=== PATIENT | female | born 1970 | race Caucasian/White ===

== ENCOUNTER 2016-07-24 04:13 | Inpatient (IN) | payer BC, OTHER ==
[2016-07-24] VITALS (23 sets, daily range): BP systolic 57–111; BP diastolic 36–74
[~2016-07-24] VITALS: Ht 157.5 cm; Wt 61.2 kg
[2016-07-24] MEDS ORDERED: ONDANSETRON IV *ER 4 MG/2 ML VIAL IV ONE (04:30)
[2016-07-24] MEDS ORDERED: IV NORMAL SALINE 1000 ML BAG IV ONE ×2 (04:30→06:00)
[2016-07-24 04:43] LABS: BASOPHILS % (AUTO) 0.1 % (0.0-2.0); EOSINOPHILS # (AUTO) 0.1 K/uL (0.0-0.7); HEMATOCRIT 41.7 % (37-47); LYMPHOCYTES # (AUTO) 0.8 K/UL (0.8-4.8); LYMPHOCYTES % (AUTO) 9.2 % (20.5-51.5); MEAN CORPUSCULAR HGB CONC 34 g/dL (32.0-37.0); MONOCYTES # (AUTO) 0.2 K/UL (0.1-1.30); MONOCYTES % (AUTO) 2.7 % (0.0-11.0); NEUTROPHILS # (AUTO) 7.5 K/UL (1.8-8.9); PLATELET COUNT (AUTO) 310 K/UL (150-450); RED BLOOD CELL COUNT(AUTO) 4.69 MIL/UL (4.2-5.4); WHITE BLOOD COUNT (AUTO) 8.6 K/UL (4.0-11.2)
[2016-07-24] MEDS ORDERED: ONDANSETRON 4 MG/2 ML VIAL ONE ×2 (04:44→08:22)
[2016-07-24 04:58] LABS: BILIRUBIN,DIRECT 0.1 mg/dL (0.0-0.2); BILIRUBIN,TOTAL 0.5 mg/dL (0.2-1.0); CREATININE 0.8 mg/dL (0.6-1.3); POTASSIUM 3.7 mmol/L (3.5-5.1); TOTAL PROTEIN, SERUM 7.2 g/dL (6.4-8.2)
[2016-07-24] MEDS ORDERED: KETOROLAC TROMETHAMINE 30 MG INJ IVP ONE (05:15)
[2016-07-24] MEDS ORDERED: KETOROLAC TROMETHAMINE 30 MG INJ ONE (05:27)
[2016-07-24] MEDS ORDERED: DIGOXIN 500 MCG/2 ML AMP IV ONE ×2 (06:00→06:30)
[2016-07-24] MEDS ORDERED: DIGOXIN 500 MCG/2 ML AMP ONE ×2 (06:08→06:38)
--- NOTE | 2016-07-24 06:09 | NUR ---
Call placed to [facility] for paten call. Awaiting call back from Dr Quiroz.
[2016-07-24] MEDS ORDERED: DILTIAZEM HCL 25 MG IV IV ONE (06:30)
[2016-07-24] MEDS ORDERED: DILTIAZEM HCL 50 MG IV ONE ×2 (06:39→07:10)
[2016-07-24] MEDS ORDERED: DILTIAZEM HCL IV 125 MG in IV DEXTROSE 5% 100 ML IV ONE (07:00)
--- NOTE | 2016-07-24 07:00 | NUR ---
Dialtiazem drip started at 5mg/hr. by patternmaker . heart rate of 117 at this time.
--- NOTE | 2016-07-24 07:00 | NUR ---
Diltiazem drip started in ER, Shirin PFEIFFER from CCU present to recieve patient. BP 73/53 at start of Diltiazem drip, okay to given per Dr Sanz. Patient admitted to CCU by Dr. Quiroz. Dx: A-Fib with RVR.
[2016-07-24] MEDS ORDERED: DILTIAZEM HCL 25 MG IV ONE (07:09)
--- NOTE | 2016-07-24 07:20 | NUR ---
Diltiazem drip stopped at this time sbp in the 76/49. heart rate of 127 yfd199%. patient with complains of dizziness and weakness.
--- NOTE | 2016-07-24 07:27 | NUR ---
A call to [facility] service and message left for Eliane currently taking over for Dr. Quiroz.
[2016-07-24] MEDS ORDERED: IV NORMAL SALINE 500 ML IV ONE (07:45)
[2016-07-24] MEDS ORDERED: IV NS 1000 ML 1,000 ML IV PRN (07:59)
[2016-07-24] MEDS ORDERED: Z GUARD REMEDY PASTE 57 GM TUBE TOP PRN (08:00)
[2016-07-24] MEDS ORDERED: AMIODARONE HCL IV 150 MG in IV DEXTROSE 5% 100 ML IV ONE (08:00)
[2016-07-24] MEDS ORDERED: ONDANSETRON 4 MG/2 ML VIAL IV PRN (08:00)
[2016-07-24] MEDS ORDERED: MAGNESIUM HYDROXIDE 30 ML LIQUID UDC PO PRN (08:00)
[2016-07-24] MEDS ORDERED: ACETAMINOPHEN 325 MG TABLET PO PRN (08:00)
[2016-07-24] MEDS ORDERED: HYDROCODONE/APAP 5-325MG TABLET PO PRN (08:00)
[2016-07-24] MEDS ORDERED: ZOLPIDEM 5 MG TABLET PO PRN (08:00)
[2016-07-24 08:09] LABS: *BILIRUBIN,URIN NEGATIVE (NEGATIVE); *BLOOD, URINE 2+ (NEGATIVE); *CLARITY,URINE CLEAR (CLEAR); *COLOR,URINE YELLOW (YELLOW); *KETONES,URINE 1+ (NEGATIVE); *PROTEIN,URINE NEGATIVE (NEGATIVE); *UROBILINOGEN,URINE 0.2 E.U./dl (NORMAL); LEUKOCYTE ESTERASE ,URINE NEGATIVE (NEGATIVE); NITRITE, URINE NEGATIVE (NEGATIVE); PH,URINE 6.5 (5.0-8.0); UGLUCOSE NEGATIVE (NEGATIVE)
--- NOTE | 2016-07-24 08:10 | NUR ---
At this time drip of amiodarone to be started per protocol. Loading dose given over 10 minutes. Er computers with no scanner unable to scan med.
[2016-07-24] MEDS: METOCLOPRAMIDE HCL 10 MG/2 ML VIAL IV SCH ×3 (08:11→18:03)
--- NOTE | 2016-07-24 08:20 | NUR ---
Liv beckham started per protocol. Addendum: 07/24/16 at 1105 by DION JACOB RN piedad and dave also administered and unable to scanned medication.
[2016-07-24] MEDS ORDERED: ENOXAPARIN SODIUM 40 MG/0.4 ML DISP.SYRIN SQ ONE (08:21)
[2016-07-24] MEDS: AMIODARONE HCL IV 900 MG in IV DEXTROSE 5% 482 ML IV PRN ×2 (08:23→10:53)
[2016-07-24 08:46] LABS: BACTERIA,URINE FEW /HPF (NONE SEEN); SQUAMOUS EPITHELIAL CELL,UR FEW /HPF (NONE SEEN); WBC,URINE 0-3 /HPF (0-3)
[2016-07-24] MEDS: ENOXAPARIN SODIUM 40 MG/0.4 ML DISP.SYRIN SQ SCH (09:00)
--- NOTE | 2016-07-24 09:14 | NUR ---
Dr. Klein in to examine patient. Orders for cardiac consult received.
--- NOTE | 2016-07-24 09:50 | NUR ---
At this time patient moved to CCU-1 got situated on bed and able to help to scut herself to bed. vitals as follow: HR 73, 93/52. rr of 17.
--- NOTE | 2016-07-24 11:18 | NUR ---
medications given in ER. not scanned due to lack of computers with scanner. Medications provided by Er. rn. Chavez who also visually witness administration. manufacturing director and pharmacy notified.
--- NOTE | 2016-07-24 12:30 | NUR ---
PT COMPLAINED OF NAUSEA BUT NO EMESIS NOTED. REFUSED TO EAT HER LUNCH. MEDICATED WITH ZOFRAN 4MG SLOW IVP. PT IS RESTING .
--- NOTE | 2016-07-24 13:59 | NUR ---
Dr. Bernstein in the unit to examine patient; report given with most current EKg report. also notified of the fact that patient still feeling nauseated, and medicated accordingly. Addendum: 07/24/16 at 1507 by DION JACOB RN Orders to run amiodarone drip for another 2 hours received. Drip will be stopped at 1630
[2016-07-24] MEDS ORDERED: NOREPINEPHRINE BITARTRATE 8 MG in IV DEXTROSE 5% 500 ML IV PRN (14:00)
[2016-07-24] MEDS: IV NS 1000 ML 1,000 ML IV PRN (14:24)
[2016-07-24] MEDS: PANTOPRAZOLE SODIUM 40 MG VIAL IV SCH ×2 (14:25→21:40)
--- NOTE | 2016-07-24 14:30 | NUR ---
A call to Dr. Klein to notify her of pt's persistent epigastric pain. Orders received. Also orders for CT abdomen without contrast.
[2016-07-24] MEDS ORDERED: [UNRECOGNIZED DRUG - CODE] PO (15:30)
[2016-07-24] MEDS ORDERED: IBUP200C5 PO (15:31)
--- NOTE | 2016-07-24 15:50 | NUR ---
At this time patient taken down for CT abdomen as ordered. Patient tolerated well at this time no n/v. no c/o pain.
[2016-07-24] MEDS: METRONIDAZOLE 500 MG/NS 100ML 500 MG in PREMIXED 1 EACH IV SCH (18:01)
--- NOTE | 2016-07-24 19:13 | NUR ---
Bedside report given to rn Eppi endorsed to call Dr. Carter for GI consult recommended by Dr. Klein.
[2016-07-24] MEDS ORDERED: PANTOPRAZOLE SODIUM 40 MG VIAL IV SCH (21:00)
[2016-07-24] MEDS ORDERED: CIPROFLOXACIN IV 400 MG in PREMIXED 1 EACH IV SCH (21:00)
[2016-07-24] MEDS: CIPROFLOXACIN IV 400 MG in PREMIXED 1 EACH IV SCH (21:40)
[2016-07-25] MEDS: METOCLOPRAMIDE HCL 10 MG/2 ML VIAL IV SCH ×3 (00:05→11:12)
[2016-07-25 00:07] VITALS: BP 91/59
[2016-07-25] MEDS: METRONIDAZOLE 500 MG/NS 100ML 500 MG in PREMIXED 1 EACH IV SCH ×2 (01:59→06:26)
[2016-07-25] MEDS: IV NS 1000 ML 1,000 ML IV PRN (02:09)
--- NOTE | 2016-07-25 03:38 | NUR ---
Denies N/V at this time. NSR on the monitor. No acute distress. Report given to Sandra PFEIFFER.
--- NOTE | 2016-07-25 03:40 | NUR ---
Sleeping soundly during rounds. No s/s of respiratory distress noted. Continue to monitor.
[2016-07-25 04:48] VITALS: BP 93/64
--- NOTE | 2016-07-25 05:53 | NUR ---
Awakened in need to urinate. Minimal assist rendered. Denies any pain or discomforts. Ambulates with steady gait.
--- NOTE | 2016-07-25 05:58 | NUR ---
Complaint of pain on IV site, removed.Reinserted G# 20 on right wrist area with G3 20 x 1 attempt. Pt tolerated procedure well. Resume IVF as ordered. Kept NPO.
[2016-07-25] MEDS ORDERED: PANTOPRAZOLE SODIUM 40 MG TABLET.DR PO SCH (07:00)
--- NOTE | 2016-07-25 07:00 | NUR ---
PT IS SITTING IN BED COMFORTABLY. NO S/S OF RESPIRATORY DISTRESS NOTED. NO PAIN NOTED. IV INTACT/PATENT. ALL SAFETY NEEDS ARE MET.
[2016-07-25] MEDS: PANTOPRAZOLE SODIUM 40 MG VIAL IV SCH (08:28)
[2016-07-25] MEDS: ENOXAPARIN SODIUM 40 MG/0.4 ML DISP.SYRIN SQ SCH (08:30)
[2016-07-25] MEDS: CIPROFLOXACIN IV 400 MG in PREMIXED 1 EACH IV SCH (09:36)
[2016-07-25] MEDS ORDERED: ASPI81TA31 PO (10:43)
[2016-07-25] MEDS ORDERED: METR500T PO (10:44)
[2016-07-25] MEDS ORDERED: CIPR-262 PO (10:44)
--- NOTE | 2016-07-25 11:25 | NUR ---
CHANGE TO REGULAR DIET PER DR. GOMEZ
[2016-07-25 11:58] VITALS: BP 118/63
--- NOTE | 2016-07-25 12:34 | NUR ---
DISCHARGE NOTE: NO S/S OF RESPIRATORY DISTRESS NOTED. NO PAIN NOTED. ALL SAFETY NEEDS ARE MET. PT IS NOT FEELING NAUSEOUS, PT ASKED FOR NAUSEAS MEDICATION, BUT CHANGE HER MIND. PT STATES "I NEED TO GO HOME". PT REFUSED TO WAIT FOR PHARMACIST TO GIVE EDUCATION ON HER PRESCRIPTION, EDUCATION IS PROVIDED TO THE PT. PT ASKED FOR EXCUSE FROM WORK, ADVISED THAT DR. GOMEZ NEEDS TO WRITE DOWN THE EXCUSE FROM WORK. PER PT "PLEASE FAX THE EXCUSE FROM WORK" FAX# PROVIDED IS [phone]. WILL ADVISE DR. GOMEZ IN REGARDS OF THE EXCUSE FROM FORM. NO PAIN NOTED, IV IS REMOVED. PT DOESN'T FEEL DIZZY OR WEAK. PT LEFT VIA PRIVATE CAR WITH HER FAMILY.
== END 2016-07-25 12:40 | disposition home or self-care (01) | DRG 308 ==
LOC: ER 04:15 → UNDOADMIN 07:13 → CCUOV 07:13 → CCU 11:14 → MED 18:19 → TELE 18:24
PROVIDERS: ADMIT Internal Medicine; ATTEND Internal Medicine
DX: I48.0 Paroxysmal atrial fibrillation (principal); R57.1 Hypovolemic shock; D68.59 Other primary thrombophilia; A08.4 Viral intestinal infection, unspecified; Z88.0 Allergy status to penicillin; E66.9 Obesity, unspecified; Z68.24 Body mass index [BMI] 24.0-24.9, adult; E86.0 Dehydration; N94.6 Dysmenorrhea, unspecified; E86.9 Volume depletion, unspecified
CPT/HCPCS: 36415; 70030-TC; 71010; 83690; 84443; 84703; 85025; 85730; 93005; 93307; A4663; C9113; J0282; J0744; J1160; J1650; J1885; J2405; J2765; J3490; J7030; J7060

== ENCOUNTER → 2016-10-06 | Outpatient (CLI) | payer BC, OTHER ==
[~2016-10-06] MED LIST: ASPI81TA31 PO; CIPR-262 PO; METR500T PO; [UNRECOGNIZED DRUG - CODE] PO
[2016-10-06 10:41] LABS: BASOPHILS % (AUTO) 0.9 % (0.0-2.0); EOSINOPHILS % (AUTO) 0.9 % (0.0-7.0); HEMATOCRIT 42.3 % (37-47); HEMOGLOBIN 13.7 G/DL (12.0-16.0); LYMPHOCYTES # (AUTO) 1.8 K/UL (0.8-4.8); LYMPHOCYTES % (AUTO) 34.4 % (20.5-51.5); MEAN CORPUSCULAR HEMOGLOBIN 29.7 UUG (27.0-31.0); MEAN CORPUSCULAR HGB CONC 32 g/dL (32.0-37.0); MEAN CORPUSCULAR VOLUME 91.7 FL (81.0-99.0); MONOCYTES # (AUTO) 0.2 K/UL (0.1-1.30); MONOCYTES % (AUTO) 4.4 % (0.0-11.0); NEUTROPHILS # (AUTO) 3.2 K/UL (1.8-8.9); NEUTROPHILS % (AUTO) 59.4 % (38.5-71.5); PLATELET COUNT (AUTO) 296 K/UL (150-450); RED BLOOD CELL COUNT(AUTO) 4.61 MIL/UL (4.2-5.4); WHITE BLOOD COUNT (AUTO) 5.2 K/UL (4.0-11.2)
[2016-10-06 10:43] LABS: *BILIRUBIN,URIN NEGATIVE (NEGATIVE); *BLOOD, URINE 2+ (NEGATIVE); *CLARITY,URINE CLEAR (CLEAR); *COLOR,URINE YELLOW (YELLOW); *KETONES,URINE NEGATIVE (NEGATIVE); *PROTEIN,URINE NEGATIVE (NEGATIVE); *UROBILINOGEN,URINE 0.2 E.U./dl (NORMAL); LEUKOCYTE ESTERASE ,URINE NEGATIVE (NEGATIVE); NITRITE, URINE NEGATIVE (NEGATIVE); PH,URINE 5.5 (5.0-8.0); UGLUCOSE NEGATIVE (NEGATIVE)
[2016-10-06 11:48] LABS: BILIRUBIN,TOTAL 0.3 mg/dL (0.2-1.0); CREATININE 0.7 mg/dL (0.6-1.3); POTASSIUM 3.5 mmol/L (3.5-5.1); TOTAL PROTEIN, SERUM 7.6 g/dL (6.4-8.2); URIC ACID 2.3 mg/dL (2.6-6.0)
[2016-10-06 12:04] LABS: *RHEUMATOID FACTOR SCREEN NEGATIVE (NEGATIVE)
[2016-10-06 12:23] LABS: BACTERIA,URINE NONE SEEN /HPF (NONE SEEN); MUCUS,URINE FEW /LPF (0-FEW); SQUAMOUS EPITHELIAL CELL,UR FEW /HPF (NONE SEEN); WBC,URINE 0-3 /HPF (0-3)
[2016-10-06 12:42] LABS: THYROID STIMULATING HORMONE 0.562 mIU/mL (0.358-3.740)
[2016-10-07 19:08] LABS: *SJOGREN'S ANTI-SS-A <0.2 AI (0.0-0.9); *SJOGREN'S ANTI-SS-B <0.2 AI (0.0-0.9); *SMITH ANTIBODIES <0.2 AI (0.0-0.9); ANTI-DNA(DS) AB, QN 2 IU/mL (0-9)
== END | disposition home or self-care (01) ==
LOC: LAB 07:59
PROVIDERS: ATTEND Legal Medicine
DX: Z00.01 Encounter for general adult medical examination with abnormal findings (principal); R53.1 Weakness
CPT/HCPCS: 36415; 82085; 82746; 83550; 84157; 84443; 84520; 84550; 85025; 85651; 86038; 86140; 86430; 87086

== ENCOUNTER → 2016-11-04 | Outpatient (CLI) | payer BC, OTHER ==
[2016-11-04 08:39] LABS: BASOPHILS % (AUTO) 0.2 % (0.0-2.0); EOSINOPHILS # (AUTO) 0.1 K/uL (0.0-0.7); EOSINOPHILS % (AUTO) 1.3 % (0.0-7.0); HEMATOCRIT 44.4 % (37-47); HEMOGLOBIN 14.5 G/DL (12.0-16.0); LYMPHOCYTES # (AUTO) 2.2 K/UL (0.8-4.8); LYMPHOCYTES % (AUTO) 35.8 % (20.5-51.5); MEAN CORPUSCULAR HEMOGLOBIN 29.9 UUG (27.0-31.0); MEAN CORPUSCULAR HGB CONC 33 g/dL (32.0-37.0); MEAN CORPUSCULAR VOLUME 91.4 FL (81.0-99.0); MONOCYTES # (AUTO) 0.3 K/UL (0.1-1.30); MONOCYTES % (AUTO) 4.8 % (0.0-11.0); NEUTROPHILS # (AUTO) 3.7 K/UL (1.8-8.9); NEUTROPHILS % (AUTO) 57.9 % (38.5-71.5); PLATELET COUNT (AUTO) 347 K/UL (150-450); RED BLOOD CELL COUNT(AUTO) 4.86 MIL/UL (4.2-5.4); WHITE BLOOD COUNT (AUTO) 6.3 K/UL (4.0-11.2)
[2016-11-04 08:56] LABS: THYROID STIMULATING HORMONE 1.056 mIU/mL (0.358-3.740)
[2016-11-04 09:02] LABS: BILIRUBIN,TOTAL 0.3 mg/dL (0.2-1.0); CREATININE 0.7 mg/dL (0.6-1.3); POTASSIUM 4.1 mmol/L (3.5-5.1); TOTAL PROTEIN, SERUM 7.7 g/dL (6.4-8.2)
[2016-11-05 05:06] LABS: CORTISOL 13.5 ug/dL (.); ESTRADIOL 80.6 pg/mL (.); FOLLICLE STIMULATION HORMONE 11.8 mIU/mL (.); LUTEINIZING HORMONE 6.2 mIU/mL (.); PROLACTIN 10.7 ng/mL (4.8-23.3)
[2016-11-05 06:09] LABS: HEPATITIS A AB, TOTAL Positive (Negative); HEPATITIS B SURFACE AB Non Reactive (.); VIT D, 25-HYDROXY 18.9 ng/mL (30.0-100.0)
[2016-11-05 17:10] LABS: ACTH, PLASMA 14.5 pg/mL (7.2-63.3)
== END | disposition home or self-care (01) ==
LOC: LAB 06:54
PROVIDERS: ATTEND Legal Medicine
DX: R42 Dizziness and giddiness (principal)
CPT/HCPCS: 36415; 82024; 82306; 82533; 82670; 82746; 83001; 83002; 83550; 84146; 84443; 85025; 85651; 86140; 86706; 86708; 86803

== ENCOUNTER 2016-11-26 07:57 | Outpatient (CLI) | payer BC, OTHER ==
[2016-11-26 13:53] LABS: BASOPHILS # (AUTO) 0.1 K/uL (0.0-8.0); EOSINOPHILS # (AUTO) 0.1 K/uL (0.0-0.7); EOSINOPHILS % (AUTO) 1.2 % (0.0-7.0); HEMATOCRIT 41.3 % (37-47); HEMOGLOBIN 13.6 G/DL (12.0-16.0); LYMPHOCYTES # (AUTO) 2.8 K/UL (0.8-4.8); LYMPHOCYTES % (AUTO) 34.7 % (20.5-51.5); MEAN CORPUSCULAR HEMOGLOBIN 29.9 UUG (27.0-31.0); MEAN CORPUSCULAR HGB CONC 33 g/dL (32.0-37.0); MONOCYTES # (AUTO) 0.3 K/UL (0.1-1.30); NEUTROPHILS # (AUTO) 4.9 K/UL (1.8-8.9); NEUTROPHILS % (AUTO) 59.1 % (38.5-71.5); PLATELET COUNT (AUTO) 333 K/UL (150-450); RED BLOOD CELL COUNT(AUTO) 4.54 MIL/UL (4.2-5.4); WHITE BLOOD COUNT (AUTO) 8.2 K/UL (4.0-11.2)
[2016-11-26 14:07] LABS: BILIRUBIN,TOTAL 0.3 mg/dL (0.2-1.0); CREATININE 0.6 mg/dL (0.6-1.3); POTASSIUM 3.8 mmol/L (3.5-5.1); TOTAL PROTEIN, SERUM 7.5 g/dL (6.4-8.2)
[2016-11-26 14:17] LABS: THYROID STIMULATING HORMONE 0.564 mIU/mL (0.358-3.740)
[2016-11-27 08:10] LABS: ESTRADIOL <6.0 pg/mL (.); FOLLICLE STIMULATION HORMONE 12.1 mIU/mL (.); HEPATITIS A AB, IgM Negative (Negative); LUTEINIZING HORMONE 4.3 mIU/mL (.); THYROID PEROXIDASE (TPO) AB 12 IU/mL (0-34)
[2016-11-28 07:14] LABS: COMPLEMENT, C3 SERUM 133 mg/dL (82-167); COMPLEMENT, C4 SERUM 28 mg/dL (14-44)
[2016-11-28 13:10] LABS: ANTI-DNA(DS) AB, QN 2 IU/mL (0-9)
[2016-11-28 17:06] LABS: *SJOGREN'S ANTI-SS-A <0.2 AI (0.0-0.9); *SJOGREN'S ANTI-SS-B <0.2 AI (0.0-0.9); *SMITH ANTIBODIES <0.2 AI (0.0-0.9)
[2016-11-29 08:06] LABS: *THYROGLOBULIN <1.0 IU/mL (0.0-0.9)
== END 2016-11-26 23:59 | disposition home or self-care (01) ==
LOC: LAB 07:57
DX: M79.7 Fibromyalgia (principal); M79.1 Myalgia; M25.50 Pain in unspecified joint
CPT/HCPCS: 82670; 82746; 83001; 83002; 84443; 85025; 85651; 85730; 86038; 86140; 86160; 86225; 86709

== ENCOUNTER 2017-01-21 07:07 | Emergency (ER) | payer BC, OTHER ==
[~2017-01-21] VITALS: Ht 160 cm; Wt 61.7 kg
--- NOTE | 2017-01-21 07:34 | NUR ---
Patient discharged to home in stable conditon. Written and verbal after care instructions given. Patient verbalizes understanding of instructions.pt walks in steady gait.
== END 2017-01-21 07:36 | disposition home or self-care (01) ==
LOC: ER 07:07
DX: S06.0X0A Concussion without loss of consciousness, initial encounter (principal); Z79.82 Long term (current) use of aspirin; Z88.0 Allergy status to penicillin; X58.XXXA Exposure to other specified factors, initial encounter; Y93.89 Activity, other specified; Y92.89 Other specified places as the place of occurrence of the external cause; Y99.8 Other external cause status
CPT/HCPCS: A4663

== ENCOUNTER 2017-02-17 12:08 | Day surgery (SDC) | payer BC, OTHER ==
[2017-02-17 13:00] LABS: BASOPHILS # (AUTO) 0.1 K/uL (0.0-8.0); BASOPHILS % (AUTO) 1.3 % (0.0-2.0); EOSINOPHILS # (AUTO) 0.1 K/uL (0.0-0.7); EOSINOPHILS % (AUTO) 0.8 % (0.0-7.0); HEMATOCRIT 35.6 % (31.2-41.9); HEMOGLOBIN 12.3 g/dL (10.9-14.3); LYMPHOCYTES # (AUTO) 2.4 K/uL (20.0-40.0); LYMPHOCYTES % (AUTO) 35.8 % (20.5-51.5); MEAN CORPUSCULAR HGB CONC 35 g/dL (32.3-35.6); MEAN CORPUSCULAR VOLUME 89.7 fL (75.5-95.3); MONOCYTES # (AUTO) 0.3 K/uL (2.0-10.0); MONOCYTES % (AUTO) 4.8 % (0.0-11.0); NEUTROPHILS # (AUTO) 3.8 K/uL (1.8-8.9); NEUTROPHILS % (AUTO) 57.3 % (38.5-71.5); PLATELET COUNT (AUTO) 270 K/uL (179-408); RED BLOOD CELL COUNT(AUTO) 3.97 MIL/uL (3.63-4.92); WHITE BLOOD COUNT (AUTO) 6.6 K/uL (3.8-11.8)
[2017-02-17 13:13] LABS: CARBON DIOXIDE 26 mmol/L (21-32); CHLORIDE 104 mmol/L (98-107); CREATININE 0.5 mg/dL (0.6-1.3); GLUCOSE 85 mg/dL (74-106); POTASSIUM 3.9 mmol/L (3.5-5.1); UREA NITROGEN, BLOOD 13 mg/dL (7-18)
[2017-02-17 13:19] LABS: ALANINE AMINOTRANSFERASE 18 U/L (14-59); ALKALINE PHOSPHATASE 46 U/L (50-136); ASPARTATE AMINOTRANSFERASE 11 U/L (15-37); BILIRUBIN,TOTAL 0.3 mg/dL (0.2-1.0); TOTAL PROTEIN, SERUM 7.1 g/dL (6.4-8.2)
[2017-02-17 13:35] LABS: *BILIRUBIN,URIN NEGATIVE (NEGATIVE); *BLOOD, URINE 1+ (NEGATIVE); *CLARITY,URINE CLEAR (CLEAR); *COLOR,URINE YELLOW (YELLOW); *KETONES,URINE NEGATIVE (NEGATIVE); *PROTEIN,URINE NEGATIVE (NEGATIVE); *UROBILINOGEN,URINE 0.2 E.U./dl (NORMAL); LEUKOCYTE ESTERASE ,URINE NEGATIVE (NEGATIVE); NITRITE, URINE NEGATIVE (NEGATIVE); UGLUCOSE NEGATIVE (NEGATIVE)
[2017-02-17 13:43] LABS: *URINE HCG, QUAL NEGATIVE (NEGATIVE)
[2017-02-17 14:51] LABS: BACTERIA,URINE FEW /HPF (NONE SEEN); SQUAMOUS EPITHELIAL CELL,UR MODERATE /HPF (NONE SEEN)
== END 2017-02-17 14:53 | disposition home or self-care (01) ==
LOC: DS 12:08
PROVIDERS: ATTEND Internal Medicine Gastroenterology
DX: K29.70 Gastritis, unspecified, without bleeding (principal)
CPT/HCPCS: 36415; 84703; 85025; 85730; 93005; A4217; A4663; J7120

== ENCOUNTER → 2017-03-18 | Outpatient (CLI) | payer BC, OTHER | END | disposition home or self-care (01) | LOC: US 06:34 | PROVIDERS: ATTEND Surgery | DX: R10.11 Right upper quadrant pain (principal); R10.13 Epigastric pain | CPT/HCPCS: 76705 ==

== ENCOUNTER 2017-12-07 10:31 | Emergency (ER) | payer BC, OTHER ==
[~2017-12-07] VITALS: Ht 160 cm; Wt 61.7 kg
--- NOTE | 2017-12-07 10:45 | NUR ---
Dr Pablo at the bedside for MSE.
[2017-12-07 11:12] LABS: CREATININE 0.6 mg/dL (0.6-1.3); POTASSIUM 3.8 mmol/L (3.5-5.1)
[2017-12-07 11:13] LABS: BASOPHILS # (AUTO) 0.1 K/uL (0.0-8.0); BASOPHILS % (AUTO) 1.1 % (0.0-2.0); EOSINOPHILS # (AUTO) 0.1 K/uL (0.0-0.7); EOSINOPHILS % (AUTO) 0.8 % (0.0-7.0); HEMATOCRIT 36.2 % (31.2-41.9); HEMOGLOBIN 12.6 g/dL (10.9-14.3); LYMPHOCYTES # (AUTO) 2.2 K/uL (20.0-40.0); MEAN CORPUSCULAR HEMOGLOBIN 31.7 uug (24.7-32.8); MEAN CORPUSCULAR HGB CONC 35 g/dL (32.3-35.6); MONOCYTES # (AUTO) 0.4 K/uL (2.0-10.0); MONOCYTES % (AUTO) 5.8 % (0.0-11.0); NEUTROPHILS # (AUTO) 4.6 K/uL (1.8-8.9); NEUTROPHILS % (AUTO) 62.3 % (38.5-71.5); PLATELET COUNT (AUTO) 301 K/uL (179-408); RED BLOOD CELL COUNT(AUTO) 3.98 MIL/uL (3.63-4.92); WHITE BLOOD COUNT (AUTO) 7.4 K/uL (3.8-11.8)
[2017-12-07 11:24] LABS: BILIRUBIN,DIRECT 0.1 mg/dL (0.0-0.2); BILIRUBIN,TOTAL 0.3 mg/dL (0.2-1.0); TOTAL PROTEIN, SERUM 6.8 g/dL (6.4-8.2)
[2017-12-07] MEDS ORDERED: MECLIZINE HCL 25 MG TABLET ONE (11:57)
[2017-12-07] MEDS ORDERED: MECLIZINE HCL 25 MG TABLET PO ONE (12:00)
[2017-12-07 12:34] VITALS: BP 107/66
--- NOTE | 2017-12-07 12:35 | NUR ---
Patient discharged to home in stable conditon. Written and verbal after care instructions given. Patient verbalizes understanding of instructions. Pt left ER w/ steady gait.
== END 2017-12-07 12:35 | disposition home or self-care (01) ==
LOC: ER 10:31
DX: R42 Dizziness and giddiness (principal); I48.91 Unspecified atrial fibrillation; Z88.0 Allergy status to penicillin; Z88.1 Allergy status to other antibiotic agents
CPT/HCPCS: 36415; 70030-TC; 71045; 83690; 85025; 93005; A4663; J8597

== ENCOUNTER 2017-12-15 06:23 | Outpatient (CLI) | payer BC, OTHER ==
[2017-12-15 09:55] LABS: BILIRUBIN,TOTAL 0.4 mg/dL (0.2-1.0); CREATININE 0.6 mg/dL (0.6-1.3); TOTAL PROTEIN, SERUM 7.6 g/dL (6.4-8.2)
[2017-12-15 11:18] LABS: URIC ACID 2.9 mg/dL (2.6-6.0)
[2017-12-15 11:39] LABS: THYROID STIMULATING HORMONE 1.054 mIU/mL (0.358-3.740)
[2017-12-17 12:08] LABS: *SJOGREN'S ANTI-SS-A <0.2 AI (0.0-0.9); *SJOGREN'S ANTI-SS-B <0.2 AI (0.0-0.9); *SMITH ANTIBODIES <0.2 AI (0.0-0.9); ANTI-DNA(DS) AB, QN 3 IU/mL (0-9)
== END 2017-12-15 23:59 | disposition home or self-care (01) ==
LOC: LAB 06:23
PROVIDERS: ATTEND Legal Medicine
DX: E03.9 Hypothyroidism, unspecified (principal); D64.9 Anemia, unspecified; R53.1 Weakness
CPT/HCPCS: 36415; 83550; 84157; 84443; 84520; 84550; 85651; 86038

== ENCOUNTER 2018-04-22 06:57 | Outpatient (CLI) | payer BC, OTHER ==
[2018-04-22 08:06] LABS: IRON, SERUM 105 ug/dL (50-175)
[2018-04-22 08:11] LABS: BASOPHILS # (AUTO) 0.1 K/uL (0.0-8.0); BASOPHILS % (AUTO) 1.3 % (0.0-2.0); EOSINOPHILS # (AUTO) 0.1 K/uL (0.0-0.7); EOSINOPHILS % (AUTO) 1.1 % (0.0-7.0); HEMATOCRIT 39.5 % (31.2-41.9); HEMOGLOBIN 13.4 g/dL (10.9-14.3); LYMPHOCYTES # (AUTO) 2.6 K/uL (20.0-40.0); LYMPHOCYTES % (AUTO) 38.2 % (20.5-51.5); MEAN CORPUSCULAR HEMOGLOBIN 30.5 uug (24.7-32.8); MEAN CORPUSCULAR HGB CONC 34 g/dL (32.3-35.6); MEAN CORPUSCULAR VOLUME 89.8 fL (75.5-95.3); MONOCYTES # (AUTO) 0.3 K/uL (2.0-10.0); MONOCYTES % (AUTO) 5.1 % (0.0-11.0); NEUTROPHILS # (AUTO) 3.7 K/uL (1.8-8.9); NEUTROPHILS % (AUTO) 54.3 % (38.5-71.5); PLATELET COUNT (AUTO) 330 K/uL (179-408); WHITE BLOOD COUNT (AUTO) 6.7 K/uL (3.8-11.8)
[2018-04-22 08:42] LABS: ALANINE AMINOTRANSFERASE 17 U/L (14-59); ALKALINE PHOSPHATASE 43 U/L (50-136); AMYLASE 70 U/L (25-115); ASPARTATE AMINOTRANSFERASE 14 U/L (15-37); BILIRUBIN,TOTAL 0.2 mg/dL (0.2-1.0); CARBON DIOXIDE 26 mmol/L (21-32); CHLORIDE 104 mmol/L (98-107); CHOLESTEROL 192 mg/dL (<200); CREATININE 0.5 mg/dL (0.6-1.3); GLUCOSE 97 mg/dL (74-106); HDL CHOLESTEROL 64 mg/dL (40-60); POTASSIUM 4.1 mmol/L (3.5-5.1); TOTAL PROTEIN, SERUM 7.4 g/dL (6.4-8.2); TRIGLYCERIDES 100 MG/DL (30-150); UREA NITROGEN, BLOOD 17 mg/dL (7-18)
[2018-04-22 09:07] LABS: LIPASE 161 U/L (73-393)
[2018-04-22 09:21] LABS: *BILIRUBIN,URIN NEGATIVE (NEGATIVE); *CLARITY,URINE SLIGHTLY CLOUDY (CLEAR); *COLOR,URINE YELLOW (YELLOW); *KETONES,URINE NEGATIVE (NEGATIVE); *UROBILINOGEN,URINE 0.2 E.U./dl (NORMAL); LEUKOCYTE ESTERASE ,URINE TRACE (NEGATIVE); NITRITE, URINE NEGATIVE (NEGATIVE); PH,URINE 5.5 (5.0-8.0); UGLUCOSE NEGATIVE (NEGATIVE)
[2018-04-22 09:26] LABS: *BLOOD, URINE TRACE (NEGATIVE)
[2018-04-22 09:27] LABS: BACTERIA,URINE MODERATE /HPF (NONE SEEN); MUCUS,URINE FEW /LPF (0-FEW); RBC,URINE 0-3 /HPF (0-3); SQUAMOUS EPITHELIAL CELL,UR MODERATE /HPF (NONE SEEN)
[2018-04-23 08:06] LABS: *TESTOSTERONE, SERUM 15 ng/dL (3-41); FOLLICLE STIMULATION HORMONE 6.8 mIU/mL (.); LUTEINIZING HORMONE 7.9 mIU/mL (.)
[2018-04-27 00:11] LABS: *VITAMIN D 25-OH VIT D 17 ng/mL (.); *VITAMIN D 25-OH, D2 6.2 ng/mL (.); *VITAMIN D 25-OH, D3 11 ng/mL (.)
[2018-04-29 22:11] LABS: IMMUNOGLOBULIN E, TOTAL 20 IU/mL (6-495)
== END 2018-04-22 23:59 | disposition home or self-care (01) ==
LOC: LAB 06:57
PROVIDERS: ATTEND Legal Medicine
DX: Z00.00 Encounter for general adult medical examination without abnormal findings (principal); I10 Essential (primary) hypertension; E11.9 Type 2 diabetes mellitus without complications; E03.9 Hypothyroidism, unspecified; E78.00 Pure hypercholesterolemia, unspecified; D64.9 Anemia, unspecified; R10.9 Unspecified abdominal pain
CPT/HCPCS: 36415; 76700; 82785; 83001; 83002; 83550; 83690; 84403; 84443; 85025; 87086

== ENCOUNTER 2018-08-14 12:00 | Emergency (ER) | payer BC, OTHER ==
[~2018-08-14] VITALS: Ht 157.5 cm; Wt 68.0 kg
[2018-08-14] MEDS ORDERED: MORPHINE SULFATE 4 MG/1 ML DISP.SYRIN ONE ×3 (12:09→13:48)
[2018-08-14] MEDS ORDERED: ONDANSETRON 4 MG/2 ML VIAL ONE ×2 (12:10→12:57)
[2018-08-14] MEDS ORDERED: KETOROLAC TROMETHAMINE 60 MG INJ IM ONE (12:15)
[2018-08-14] MEDS ORDERED: KETOROLAC TROMETHAMINE 30 MG INJ IVP ONE (12:15)
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
--- NOTE | 2018-08-14 12:34 | NUR ---
PT DENIES HEAD INJURY/LOC.
[2018-08-14] MEDS ORDERED: NEOMY/BACITRA/POLYMYXIN B OINT UD PACKET TP ONE ×2 (12:58→13:00)
[2018-08-14] MEDS ORDERED: MORPHINE SULFATE 2 MG/1 ML DISP.SYRIN IV ONE ×2 (13:00→13:15)
[2018-08-14] MEDS ORDERED: ONDANSETRON 4 MG/2 ML VIAL IV ONE ×2 (13:00)
[2018-08-14] MEDS ORDERED: MORPHINE SULFATE 4 MG/1 ML DISP.SYRIN IV ONE ×2 (13:00→13:45)
--- NOTE | 2018-08-14 13:10 | NUR ---
PT TAKEN TO RADIOLOGY FOR IMAGING.
--- NOTE | 2018-08-14 13:37 | NUR ---
PT BACK IN ER FROM RADIOLOGY.
--- NOTE | 2018-08-14 14:07 | NUR ---
BREEZY SHELL AT BEDSIDE FOR PT UPDATE.
[2018-08-14] MEDS ORDERED: HYDROMORPHONE 1 MG/1 ML DISP.SYRIN ONE (14:14)
[2018-08-14] MEDS ORDERED: HYDROMORPHONE 1 MG/1 ML DISP.SYRIN IV ONE (14:15)
--- NOTE | 2018-08-14 14:36 | NUR ---
Patient discharged to home in stable conditon. Written and verbal after care instructions given. Patient verbalizes understanding of instructions. ALL BELONGINGS W/ PT. PT SELF-AMBULATED W/O DIFFICULTY. PT WILL BE DRIVEN HOME BY FAMILY IN PRIVATE VEHICLE. 20G IV ACCESS IN LAC REMOVED PRIOR TO D/C - INNER CANNULA INTACT.
[2018-08-14 14:38] VITALS: BP 113/66
== END 2018-08-14 14:39 | disposition home or self-care (01) ==
LOC: ER 12:02
DX: S60.511A Abrasion of right hand, initial encounter (principal); S39.92XA Unspecified injury of lower back, initial encounter; M25.512 Pain in left shoulder; I48.91 Unspecified atrial fibrillation; Z88.0 Allergy status to penicillin; Z88.1 Allergy status to other antibiotic agents; Z79.82 Long term (current) use of aspirin; Z79.2 Long term (current) use of antibiotics; Z79.899 Other long term (current) drug therapy; V03.90XA Pedestrian on foot injured in collision with car, pick-up truck or van, unspecified whether traffic or nontraffic accident, initial encounter; Y93.89 Activity, other specified; Y92.89 Other specified places as the place of occurrence of the external cause; Y99.8 Other external cause status
CPT/HCPCS: 36415; 72100; 72220; 84702; 96374; 96375; 96376; 99284; J1170; J1885; J2270 ×2; J2405; A4663

== ENCOUNTER 2019-02-25 13:40 | Emergency (ER) | payer BC, OTHER ==
[~2019-02-25] VITALS: Ht 157.5 cm; Wt 68.0 kg
--- NOTE | 2019-02-25 13:51 | NUR ---
Roundhouse Supervisor assumes care- hands off report received from DAYTON Pickard. Patient is AOx4, NAD, respiration:easy, skin wamr & dry, pending diagnostic tests@this time.
[2019-02-25 14:13] LABS: BASOPHILS # (AUTO) 0.1 K/uL (0.0-8.0); EOSINOPHILS % (AUTO) 0.8 % (0.0-7.0); HEMATOCRIT 37.8 % (31.2-41.9); HEMOGLOBIN 12.5 g/dL (10.9-14.3); LYMPHOCYTES # (AUTO) 2.5 K/uL (20.0-40.0); LYMPHOCYTES % (AUTO) 38.3 % (20.5-51.5); MEAN CORPUSCULAR HEMOGLOBIN 30.1 uug (24.7-32.8); MEAN CORPUSCULAR HGB CONC 33 g/dL (32.3-35.6); MONOCYTES # (AUTO) 0.3 K/uL (2.0-10.0); MONOCYTES % (AUTO) 5.2 % (0.0-11.0); NEUTROPHILS # (AUTO) 3.5 K/uL (1.8-8.9); NEUTROPHILS % (AUTO) 54.7 % (38.5-71.5); PLATELET COUNT (AUTO) 294 K/uL (179-408); RED BLOOD CELL COUNT(AUTO) 4.15 MIL/uL (3.63-4.92); WHITE BLOOD COUNT (AUTO) 6.5 K/uL (3.8-11.8)
[2019-02-25 14:24] LABS: CREATININE 0.6 mg/dL (0.6-1.3)
--- NOTE | 2019-02-25 14:32 | NUR ---
Patient discharged to home in stable conditon with brisk steady gait. Written and verbal after care instructions given to patient. Patient verbalizes understanding and compliance of instructions.
== END 2019-02-25 14:35 | disposition home or self-care (01) ==
LOC: ER 13:40
DX: S29.012A Strain of muscle and tendon of back wall of thorax, initial encounter (principal); R07.89 Other chest pain; I48.91 Unspecified atrial fibrillation; Z88.0 Allergy status to penicillin; Z88.1 Allergy status to other antibiotic agents; Z79.82 Long term (current) use of aspirin; Z79.2 Long term (current) use of antibiotics; Z79.899 Other long term (current) drug therapy; X58.XXXA Exposure to other specified factors, initial encounter; Y93.89 Activity, other specified; Y92.89 Other specified places as the place of occurrence of the external cause; Y99.8 Other external cause status
CPT/HCPCS: 36415; 70030-TC; 71045; 85025; 93005; A4663

== ENCOUNTER 2019-03-13 10:31 | Emergency (ER) | payer BC, OTHER ==
[~2019-03-13] VITALS: Ht 157.5 cm; Wt 68.0 kg
[2019-03-13] MEDS ORDERED: CEFTRIAXONE 1 G VIAL IM ONE (11:00)
[2019-03-13] MEDS ORDERED: CEFTRIAXONE 1 G VIAL ONE (11:08)
[2019-03-13] MEDS ORDERED: LIDOCAINE HCL 1% 20 ML VIAL ONE (11:09)
--- NOTE | 2019-03-13 11:25 | NUR ---
Patient discharged to home in stable conditon. Written and verbal after care instructions given. Patient verbalizes understanding of instructions.pt walked in steady gait. no reaction to antibiotic. pt with family member.
== END 2019-03-13 11:30 | disposition home or self-care (01) ==
LOC: ER 10:31
DX: J06.9 Acute upper respiratory infection, unspecified (principal); R51 Headache; I48.91 Unspecified atrial fibrillation; Z88.0 Allergy status to penicillin; Z88.1 Allergy status to other antibiotic agents; Z79.82 Long term (current) use of aspirin; Z79.2 Long term (current) use of antibiotics; Z79.899 Other long term (current) drug therapy
CPT/HCPCS: 96372; 99283; J0696; J3490; A4663

== ENCOUNTER 2019-03-25 09:11 | Outpatient (CLI) | payer BC, OTHER | END 2019-03-25 23:59 | disposition home or self-care (01) | LOC: CT 09:11 | PROVIDERS: ATTEND Legal Medicine | DX: J32.0 Chronic maxillary sinusitis (principal); J34.2 Deviated nasal septum | CPT/HCPCS: 70486 ==

== ENCOUNTER 2019-07-27 11:49 | Outpatient (CLI) | payer BC, OTHER | END 2019-07-27 23:59 | disposition home or self-care (01) | LOC: XRAY 11:49 | PROVIDERS: ATTEND Legal Medicine | DX: I51.7 Cardiomegaly (principal) | CPT/HCPCS: 71046; 93307 ==

== ENCOUNTER 2019-10-06 09:39 | Outpatient (CLI) | payer BC, OTHER ==
[2019-10-06 10:27] LABS: BASOPHILS # (AUTO) 0.1 K/uL (0.0-8.0); BASOPHILS % (AUTO) 1.3 % (0.0-2.0); EOSINOPHILS # (AUTO) 0.1 K/uL (0.0-0.7); EOSINOPHILS % (AUTO) 1.1 % (0.0-7.0); HEMATOCRIT 38.5 % (31.2-41.9); HEMOGLOBIN 12.9 g/dL (10.9-14.3); LYMPHOCYTES # (AUTO) 2.6 K/uL (20.0-40.0); LYMPHOCYTES % (AUTO) 38.9 % (20.5-51.5); MEAN CORPUSCULAR HEMOGLOBIN 30.4 uug (24.7-32.8); MEAN CORPUSCULAR HGB CONC 34 g/dL (32.3-35.6); MONOCYTES # (AUTO) 0.4 K/uL (2.0-10.0); MONOCYTES % (AUTO) 6.2 % (0.0-11.0); NEUTROPHILS # (AUTO) 3.5 K/uL (1.8-8.9); NEUTROPHILS % (AUTO) 52.5 % (38.5-71.5); PLATELET COUNT (AUTO) 359 K/uL (179-408); RED BLOOD CELL COUNT(AUTO) 4.23 MIL/uL (3.63-4.92); WHITE BLOOD COUNT (AUTO) 6.6 K/uL (3.8-11.8)
== END 2019-10-06 23:59 | disposition home or self-care (01) ==
LOC: LAB 09:39
DX: L65.0 Telogen effluvium (principal)
CPT/HCPCS: 83550; 84443; 85025

== ENCOUNTER 2019-11-07 07:17 | Outpatient (CLI) | payer BC, OTHER ==
[2019-11-07 08:09] LABS: BASOPHILS # (AUTO) 0.1 K/uL (0.0-8.0); BASOPHILS % (AUTO) 1.3 % (0.0-2.0); EOSINOPHILS # (AUTO) 0.1 K/uL (0.0-0.7); EOSINOPHILS % (AUTO) 1.1 % (0.0-7.0); HEMATOCRIT 39.9 % (31.2-41.9); HEMOGLOBIN 13.7 g/dL (10.9-14.3); LYMPHOCYTES # (AUTO) 2.6 K/uL (20.0-40.0); LYMPHOCYTES % (AUTO) 39.5 % (20.5-51.5); MEAN CORPUSCULAR HEMOGLOBIN 31.1 uug (24.7-32.8); MEAN CORPUSCULAR HGB CONC 34 g/dL (32.3-35.6); MEAN CORPUSCULAR VOLUME 90.7 fL (75.5-95.3); MONOCYTES # (AUTO) 0.4 K/uL (2.0-10.0); MONOCYTES % (AUTO) 6.1 % (0.0-11.0); NEUTROPHILS # (AUTO) 3.4 K/uL (1.8-8.9); PLATELET COUNT (AUTO) 341 K/uL (179-408); WHITE BLOOD COUNT (AUTO) 6.5 K/uL (3.8-11.8)
[2019-11-08 07:06] LABS: ESTRADIOL 14.6 pg/mL (.); FOLLICLE STIMULATION HORMONE 26.4 mIU/mL (.)
== END 2019-11-07 23:59 | disposition home or self-care (01) ==
LOC: LAB 07:17
PROVIDERS: ATTEND Obstetrics & Gynecology
DX: Z01.419 Encounter for gynecological examination (general) (routine) without abnormal findings (principal)
CPT/HCPCS: 36415; 82670; 83001; 84443; 85025

== ENCOUNTER → 2020-01-20 | Outpatient (CLI) | payer BC, OTHER | END | disposition home or self-care (01) | LOC: RAD 10:03 | PROVIDERS: ATTEND Legal Medicine | DX: M79.644 Pain in right finger(s) (principal) | CPT/HCPCS: 73140 ==

== ENCOUNTER 2020-01-29 07:34 | Emergency (ER) | payer BC, OTHER ==
[~2020-01-29] VITALS: Ht 157.5 cm; Wt 68.0 kg
--- NOTE | 2020-01-29 08:04 | NUR ---
PT WAS EVALUATED BY DR GR. PT WAS D/C'd TO HOME. D/C INSTRUCTIONS GIVEN TO THE PT BY DR GR.
[2020-01-29 08:11] VITALS: BP 131/71
== END 2020-01-29 08:12 | disposition home or self-care (01) ==
LOC: ER 07:34
DX: T81.49XA Infection following a procedure, other surgical site, initial encounter (principal); L08.9 Local infection of the skin and subcutaneous tissue, unspecified; Z88.4 Allergy status to anesthetic agent; Z88.0 Allergy status to penicillin; Z79.82 Long term (current) use of aspirin; I48.91 Unspecified atrial fibrillation
CPT/HCPCS: A4663

== ENCOUNTER 2020-08-15 07:08 | Outpatient (CLI) | payer BC, OTHER ==
[2020-08-15 07:51] LABS: *BILIRUBIN,URIN NEGATIVE (NEGATIVE); *BLOOD, URINE NEGATIVE (NEGATIVE); *CLARITY,URINE SLIGHTLY CLOUDY (CLEAR); *COLOR,URINE YELLOW (YELLOW); *KETONES,URINE NEGATIVE (NEGATIVE); *UROBILINOGEN,URINE 0.2 E.U./dl (NORMAL); LEUKOCYTE ESTERASE ,URINE NEGATIVE (NEGATIVE); NITRITE, URINE NEGATIVE (NEGATIVE); PH,URINE 5.5 (5.0-8.0); UGLUCOSE NEGATIVE (NEGATIVE)
[2020-08-15 08:02] LABS: HEMATOCRIT 39.8 % (31.2-41.9); MEAN CORPUSCULAR HEMOGLOBIN 30.6 uug (24.7-32.8); MEAN CORPUSCULAR VOLUME 91.3 fL (75.5-95.3); PLATELET COUNT (AUTO) 346 K/uL (179-408)
[2020-08-15 08:37] LABS: *RHEUMATOID FACTOR SCREEN NEGATIVE (NEGATIVE)
[2020-08-15 08:54] LABS: ALANINE AMINOTRANSFERASE 18 U/L (14-59); ALKALINE PHOSPHATASE 58 U/L (50-136); ASPARTATE AMINOTRANSFERASE 7 U/L (15-37); BILIRUBIN,TOTAL 0.3 mg/dL (0.2-1.0); CARBON DIOXIDE 27 mmol/L (21-32); CHLORIDE 104 mmol/L (98-107); CREATINE KINASE, TOTAL 23 U/L (26-192); CREATININE 0.7 mg/dL (0.6-1.3); GLUCOSE 111 mg/dL (74-106); POTASSIUM 4.3 mmol/L (3.5-5.1); TOTAL PROTEIN, SERUM 7.5 g/dL (6.4-8.2); UREA NITROGEN, BLOOD 17 mg/dL (7-18)
[2020-08-15 08:57] LABS: THYROID STIMULATING HORMONE 1.288 mIU/mL (0.358-3.740)
[2020-08-15 09:13] LABS: IRON, SERUM 106 ug/dL (50-175)
[2020-08-15 09:46] LABS: CHOLESTEROL 208 mg/dL (<200); FERRITIN 40 ng/mL (8-252); HDL CHOLESTEROL 57 mg/dL (40-60); TRIGLYCERIDES 89 MG/DL (30-150); URIC ACID 3.6 mg/dL (2.6-6.0)
[2020-08-15 12:59] LABS: BACTERIA,URINE NONE SEEN /HPF (NONE SEEN); RBC,URINE NONE SEEN /HPF (0-3); SQUAMOUS EPITHELIAL CELL,UR FEW /HPF (NONE SEEN)
[2020-08-15 13:01] LABS: URINE AMORPHOUS URATE MANY /HPF; WBC,URINE NONE SEEN /HPF (0-3)
[2020-08-16 15:50] LABS: *MICROALBUMIN, UR 9.4; CREATININE, URINE 183.7
[2020-08-16 18:23] LABS: *SMITH ANTIBODIES <0.2; ANTI-DNA(DS) AB, QN <1
[2020-08-16 18:24] LABS: *SJOGREN'S ANTI-SS-A <0.2; *SJOGREN'S ANTI-SS-B <0.2
== END 2020-08-15 23:59 | disposition home or self-care (01) ==
LOC: LAB 07:08
PROVIDERS: ATTEND Legal Medicine
DX: I12.9 Hypertensive chronic kidney disease with stage 1 through stage 4 chronic kidney disease, or unspecified chronic kidney disease (principal); E11.22 Type 2 diabetes mellitus with diabetic chronic kidney disease; N18.9 Chronic kidney disease, unspecified; E78.5 Hyperlipidemia, unspecified; E03.9 Hypothyroidism, unspecified; E55.9 Vitamin D deficiency, unspecified; D64.9 Anemia, unspecified; R53.1 Weakness; Z00.00 Encounter for general adult medical examination without abnormal findings
CPT/HCPCS: 36415; 82043; 82306; 82570; 82746; 83550; 84443; 84550; 85025; 85651; 86038; 86140; 86430; 87086

== ENCOUNTER 2020-10-24 06:26 | Emergency (ER) | payer BC, OTHER ==
[~2020-10-24] VITALS: Ht 157.5 cm; Wt 68.0 kg
--- NOTE | 2020-10-24 07:01 | NUR ---
Assisted Dr. Aleman as yarn spinner for pelvic exam.
--- NOTE | 2020-10-24 07:06 | NUR ---
Verbal after care instructions given. Patient discharged to home in stable condition. Written and verbal after care instructions given. Patient verbalizes understanding of instructions. Stressed follow up or return to ER for worsening s/s.
== END 2020-10-24 07:07 | disposition home or self-care (01) ==
LOC: ER 06:27
DX: T19.2XXA Foreign body in vulva and vagina, initial encounter (principal); X58.XXXA Exposure to other specified factors, initial encounter; Y92.89 Other specified places as the place of occurrence of the external cause; Z88.0 Allergy status to penicillin
CPT/HCPCS: A4663

== ENCOUNTER 2021-01-31 06:24 | Emergency (ER) | payer BC, OTHER ==
--- NOTE | 2021-01-31 06:30 | NUR ---
Registered by mistake.
== END 2021-01-31 07:05 | disposition left against medical advice (07) ==
LOC: CANPREER → ER 07:00
DX: Z53.21 Procedure and treatment not carried out due to patient leaving prior to being seen by health care provider (principal)

== ENCOUNTER 2021-04-25 07:09 | Emergency (ER) | payer BC, OTHER ==
[~2021-04-25] VITALS: Ht 157.5 cm; Wt 68.0 kg
[2021-04-25] MEDS ORDERED: MORPHINE SULFATE 2 MG/1 ML DISP.SYRIN IV ONE (07:15)
[2021-04-25] MEDS ORDERED: ONDANSETRON 4 MG/2 ML VIAL IV ONE (07:15)
[2021-04-25] MEDS ORDERED: MORPHINE SULFATE 4 MG/1 ML DISP.SYRIN ONE (07:23)
[2021-04-25] MEDS ORDERED: ONDANSETRON 4 MG/2 ML VIAL ONE (07:23)
--- NOTE | 2021-04-25 07:45 | NUR ---
Patient is back from CT scan in same condition. Patient said "Not yet" when asked if she wanted more pain medicine.
--- NOTE | 2021-04-25 07:48 | NUR ---
"OK to have water." per Dr Wang.
[2021-04-25] MEDS ORDERED: KETOROLAC TROMETHAMINE 30 MG INJ IVP ONE (08:00)
[2021-04-25] MEDS ORDERED: KETOROLAC TROMETHAMINE 30 MG INJ ONE (08:09)
--- NOTE | 2021-04-25 08:49 | NUR ---
Patient is resting comfortably on gurney with eyes closed, pending disposition,NAD.
--- NOTE | 2021-04-25 10:01 | NUR ---
Patient is now awake and wants to talk to MD. Dr Wang notified.
--- NOTE | 2021-04-25 11:14 | NUR ---
Patient is sleeping, easily arousable and she said that she wants to go home, MD notified.
--- NOTE | 2021-04-25 11:31 | NUR ---
Copies of all tests' results were given to patient per MD order.
[2021-04-25] MEDS ORDERED: ONDA4TAB11 PO ×2 (11:32→11:42)
[2021-04-25] MEDS ORDERED: OXYC-133 PO ×2 (11:32→11:42)
--- NOTE | 2021-04-25 11:35 | NUR ---
Patient was able to walk with slow steady gait with minimal assist from room 3 to ER hallway.
--- NOTE | 2021-04-25 11:50 | NUR ---
Patient discharged to home in stable condition with family. Written and verbal after care instructions given. Patient verbalizes understanding of instructions. Stressed follow up or return to ER for worsening s/s.
== END 2021-04-25 11:52 | disposition home or self-care (01) ==
LOC: ER 07:09
DX: S32.019A Unspecified fracture of first lumbar vertebra, initial encounter for closed fracture (principal); S06.0X0A Concussion without loss of consciousness, initial encounter; W01.0XXA Fall on same level from slipping, tripping and stumbling without subsequent striking against object, initial encounter; Y92.239 Unspecified place in hospital as the place of occurrence of the external cause; Y99.0 Civilian activity done for income or pay; Z88.0 Allergy status to penicillin; Z79.82 Long term (current) use of aspirin
CPT/HCPCS: 70450; 72110; 72220; 96374; 96375; 99284; J1885; J2270; J2405; A4663

== ENCOUNTER 2021-08-19 09:57 | Emergency (ER) | payer BC, OTHER ==
[~2021-08-19] VITALS: Ht 157.5 cm; Wt 70.3 kg
[~2021-08-19 09:57] MED LIST changes: +ONDA4TAB11 PO; +OXYC-133 PO
--- NOTE | 2021-08-19 10:12 | NUR ---
at beside physical exam in progress.
[2021-08-19] MEDS ORDERED: TORADOL PO (10:22)
[2021-08-19] MEDS ORDERED: IBUP800T54 PO (10:22)
[2021-08-19] MEDS ORDERED: LORAZEPAM PO (10:22)
[2021-08-19] MEDS ORDERED: GABAPENTIN PO (10:22)
--- NOTE | 2021-08-19 10:33 | NUR ---
DCD intructions given to pt. who verbalized understanding. Patient left room ambulatory non-steady gait graving her lower back. Instructed as ordered to follow up with PCP.
== END 2021-08-19 10:35 | disposition home or self-care (01) ==
LOC: ER 09:57
DX: M54.9 Dorsalgia, unspecified (principal); G89.29 Other chronic pain; Z88.0 Allergy status to penicillin
CPT/HCPCS: A4663